=== PATIENT | female | born 1970 | race Caucasian/White ===

== ENCOUNTER 2017-03-13 19:57 | Emergency (ER) | payer OTHER | END 2017-03-13 22:35 | disposition critical access hospital (66) | LOC: ER 19:57 | DX: J18.9 Pneumonia, unspecified organism (principal); E87.6 Hypokalemia; F17.200 Nicotine dependence, unspecified, uncomplicated; Z90.49 Acquired absence of other specified parts of digestive tract; Z98.51 Tubal ligation status; Z88.8 Allergy status to other drugs, medicaments and biological substances | CPT/HCPCS: 96365 ==

== ENCOUNTER 2017-03-13 19:57 | Observation (INO) | payer OTHER ==
[~2017-03-13] VITALS: Ht 160 cm; Wt 88.9 kg
== END 2017-03-14 12:30 | disposition home or self-care (01) ==
LOC: ER 19:57 → MED 22:36
PROVIDERS: ADMIT Internal Medicine
DX: J18.9 Pneumonia, unspecified organism (principal); R31.9 Hematuria, unspecified; E87.6 Hypokalemia; I10 Essential (primary) hypertension; Z98.51 Tubal ligation status; Z90.49 Acquired absence of other specified parts of digestive tract; Z79.1 Long term (current) use of non-steroidal anti-inflammatories (NSAID); Z88.6 Allergy status to analgesic agent
CPT/HCPCS: 36415; 87502; 87651; 96361; 96365; 96367; G0378